=== PATIENT | female | born 1995 | race Caucasian/White ===

== ENCOUNTER → 2016-08-29 | Outpatient (CLI) | payer OTHER ==
--- NOTE | 2016-08-29 17:18 | US ---
Pelvic Ultrasound (Transabdominal and Endovaginal) with color flow and spectral Doppler History: Pelvic pain for one week.. Findings: The pelvis was first examined through a mildly distended bladder from TRANSABDOMINAL approach. UTERUS: Size: 7.2 x 3.9 x 4 cm in longitudinal, AP, and transverse projections. Orientation: Retroflexed. Uterine Masses: None seen. Endometrium: Not well delineated. ADNEXA: No adnexal masses. The pelvis was then evaluated from ENDOVAGINAL approach after the bladder was emptied to better evalu ate the uterus and adnexa. UTERUS: Orientation: Retroflexed. Masses: None. Endometrium: Normal measuring 6-7 mm in thickness. ADNEXA: Heterogeneous echotexture to the left ovary is noted without internal color flow enhancement suggestive of a hemorrhagic cyst. This measures about 3.5 x 3.1 x 3.7 cm Right ovary size: Normal in appearance with small follicles measuring 1.2 x 2 x 2 cm Left ovary size: In total measures 3.2 x 3.8 x 4.1 cm Color flow and spectral Doppler: Normal color flow imaging with normal Doppler waveform bilaterally. Ovarian tissue is identified with color flow along the periphery of the hemorrhagic component of the left ovary Free fluid: None. Other findings: None. Impression: 1. Probable hemorrhagic cyst left ovary. Clinical correlation and follow-up suggested. 2. Normal-appearing uterus and right ovary.
== END ==
LOC: BRMIMAGING 13:21
PROVIDERS: ATTEND Family Medicine
DX: R10.2 Pelvic and perineal pain (principal); R35.0 Frequency of micturition; N83.9 Noninflammatory disorder of ovary, fallopian tube and broad ligament, unspecified
CPT/HCPCS: 76856-PO